=== PATIENT | female | born 1990 | race Caucasian/White ===

== ENCOUNTER 2019-10-20 07:11 | Day surgery (SDC) | payer OTHER ==
[2019-10-20] MEDS ORDERED: LIDOCAINE 0.5% INJ-PF (5 MG/ML) 50 ML SDV ONE (07:35)
[2019-10-20] MEDS ORDERED: PROPOFOL INJ 200 MG/20 ML VIAL IV ONE (07:35)
--- NOTE | 2019-10-20 08:09 | Operative Report ---
Operative Report DATE OF SURGERY: 10/20/19 Operative Report: The risks benefits and alternatives of the procedure explained to the patient in detail and informed consent is obtained.A GIF Olympus video scope was inserted into the patient's mouth and hypopharynx ,the esophagus is identified intubated and insufflated, the scope was then advanced through the esophagus stomach and duodenum, retroflexion maneuver is done, the esophagus stomach and first and second portions of the duodenum examined PREOPERATIVE DIAGNOSIS: Gastroesophageal reflux disease POSTOPERATIVE DIAGNOSIS: Gastritis status post biopsy. Esophageal rings and furrows suggestive of eosinophilic esophagitis. Hiatal hernia OPERATION: EGD with biopsy SURGEON: KASSANDRA ALEMAN ANESTHESIA: LMAC TISSUE REMOVED OR ALTERED: As noted above COMPLICATIONS: None. ESTIMATED BLOOD LOSS: None. INTRAOPERATIVE FINDINGS: As noted above. PROCEDURE: Patient tolerated the procedure well. No immediate postprocedure complications are noted. Patient is discharged in good condition. Discharge date 10/20/2019. Discharge diet: Regular. Discharge activity: Regular. 2 to 3-week follow-up to discuss findings. Patient is instructed call the office or proceed to the emergency room should there be any further palpitations. Wait on the pathology.
[2019-10-20 08:48] VITALS: BP 125/70
== END 2019-10-20 08:50 | disposition home or self-care (01) ==
LOC: END 07:11
PROVIDERS: ATTEND Internal Medicine Gastroenterology
DX: K29.50 Unspecified chronic gastritis without bleeding (principal); K22.2 Esophageal obstruction; K44.9 Diaphragmatic hernia without obstruction or gangrene; K20.0 Eosinophilic esophagitis; K21.9 Gastro-esophageal reflux disease without esophagitis; E66.9 Obesity, unspecified
CPT/HCPCS: 43239; 88305 ×2; J3490; J2704; 88342

== ENCOUNTER → 2019-10-28 | Outpatient (CLI) | payer OTHER ==
--- NOTE | 2019-10-28 11:00 | RADIOLOGY REPORT (SQ) ---
EXAM DESCRIPTION: U/S ABDOMEN LIMITED W/O DOP IMAGES COMPLETED DATE/TIME: 10/28/2019 9:05 am REASON FOR STUDY: NAUSEA AND VOMITING R11.2 NAUSEA WITH VOMITING, UNSPECIFIED COMPARISON: None. TECHNIQUE: Dynamic and static grayscale images acquired of the abdomen and recorded on PACS. Additio nal selected color Doppler and spectral images recorded. LIMITATIONS: None. FINDINGS: PANCREAS: No masses. Visualized pancreatic duct normal caliber. LIVER: 22.8 cm. Multiple solid masses the largest approximately 10 cm. LIVER VASCULATURE: Normal directional flow of the main portal vein and hepatic veins. GALLBLADDER: No stones. Normal wall thickness. No pericholecystic fluid. ULTRASOUND-DETECTED BARBOSA'S SIGN: Negative. INTRAHEPATIC DUCTS AND COMMON DUCT: CBD and intrahepatic ducts normal caliber. No filling defects. INFERIOR VENA CAVA: Normal flow. AORTA: No aneurysm. RIGHT KIDNEY: Normal size. Normal echogenicity. No solid or suspicious masses. No hydronephrosis. No calcifications. PERITONEAL AND RIGHT PLEURAL SPACE: No ascites or effusions. OTHER: No other significant findings. IMPRESSION: Multiple liver masses worrisome for metastatic disease. No ascites. COMMENT: The findings were sent to the Radiology Results Communication [facility] at 10:53 on 10/28/2019 to be communicated to a licensed caregiver. TECHNICAL DOCUMENTATION: JOB ID: [id number] 2010 [employer]- All Rights Reserved Reading location - IP/workstation name: [email or web address]
--- NOTE | 2019-10-28 12:41 | RADIOLOGY REPORT (SQ) ---
EXAM DESCRIPTION: NM HIDA SCAN WITH CCK IMAGES COMPLETED DATE/TIME: 10/28/2019 12:18 pm REASON FOR STUDY: NAUSEA AND VOMITING R11.2 NAUSEA WITH VOMITING, UNSPECIFIED COMPARISON: None. RADIONUCLIDE AND DOSE: DOSAGE RADIONUCLIDE: 5.5 millicuries Tc99m Mebrofenin. DOSAGE CCK: 2.5 micrograms. DOSAGE MORPHINE: Not required. The route of agent administration: Intravenous TECHNIQUE: Serial imaging right upper quadrant up to 60 minutes following injection of radionuclide. CCK injected after gallbladder visualized. LIMITATIONS: None. FINDINGS: LIVER: Normal visualization without areas of photopenia. INTRA AND EXTRAHEPATIC BILE DUCTS: Normal accumulation of activity. GALLBLADDER: Normal visualization. Calculated Ejection Fraction of 9%. Below the normal value of 35% or greater. PHYSICAL RESPONSE: Patients presenting complaint was reproduced. OTHER: No other significant finding. IMPRESSION: LOW GALLBLADDER EJECTION FRACTION. EVIDENCE FOR BILIARY DYSKINESIS. NO CYSTIC OR COMMO N DUCT OBSTRUCTION. TECHNICAL DOCUMENTATION: JOB ID: [id number] 2010 [employer]- All Rights Reserved Reading location - IP/workstation name: [email or web address]
== END ==
LOC: RAD 08:19
PROVIDERS: ATTEND Internal Medicine Gastroenterology
DX: R11.2 Nausea with vomiting, unspecified (principal)
CPT/HCPCS: 76705; 78227; J2805; A9537; Q9969

== ENCOUNTER → 2019-11-05 | Outpatient (CLI) | payer OTHER ==
--- NOTE | 2019-11-05 16:04 | RADIOLOGY REPORT (SQ) ---
EXAM DESCRIPTION: CT ABD/PELVIS WITH IV ONLY IMAGES COMPLETED DATE/TIME: 11/05/2019 3:08 pm REASON FOR STUDY: R11.2 NAUSEA WITH VOMITING, UNSPECIFIED R11.2 NAUSEA WITH VOMITING, UNSPECIFIED COMPARISON: Abdominal ultrasound examination dated 10/28/2019. TECHNIQUE: CT scan of the abdomen and pelvis performed using helical scanning technique with dynamic intravenous contrast injection. No oral contrast. Images reviewed with lung, soft tissue, and bone windows. Reconstructed coronal and sagittal MPR images reviewed. Delayed images for evaluation of the urinary system also acquired. All images stored on PACS. All CT scanners at this facility use dose modulation, iterative reconstruction, and/or weight based d osing when appropriate to reduce radiation dose to as low as reasonably achievable (ALARA). [facility]: Dose Right [facility]: CareDose [facility]: Dose Right [facility]: Teradose 4D [facility]: [employer] CONTRAST TYPE AND DOSE: contrast/concentration: Isovue 350.00 mmol/ml; Total Contrast Delivered: 96. 0 ml; Total Saline Delivered: 64.0 ml RENAL FUNCTION: None required. The patient is less than 50 years old. RADIATION DOSE: CT Rad equipment meets quality standard of care and radiation dose reduction techniq ues were employed. CTDIvol: 22.6 - 31.4 mGy. DLP: 2950 mGy-cm.. LIMITATIONS: None. FINDINGS: LOWER CHEST: No significant findings. No nodules or infiltrates. LIVER: A very large complex heterogenous enhancing mass in the right hepatic lobe measures 13.1 cm x 11.4 cm (coronal dimensions, image 70, series 601). There are multiple low attenuated septations th roughout the mass. A partially visualized low attenuated rim surrounds the anterior margin of the ma ss. Several enhancing lesions in the dome of the liver, axial image 10, series 2, in the left hepatic lob e, axial image 16, series 2. Some of the largest measure 2.8 cm in diameter. There is an enhancing 6.8 cm x 5.8 cm mass in the left hepatic lobe, axial image 19, series 2. Considerations for these fi ndings include primary versus secondary neoplasms. Hepatomegaly, the liver measures 24.0 cm in length. No dilated ducts. The hepatic and portal veins are patent. A well-circumscribed low attenuated lesion in the left hepatic lobe with a Hounsfield un it of 28.3. SPLEEN: Normal size. No focal lesions. PANCREAS: No masses. No significant calcifications. No adjacent inflammation or peripancreatic fluid collections. Pancreatic duct not dilated. GALLBLADDER: No identified stones by CT criteria. No inflammatory changes to suggest cholecystitis. ADRENAL GLANDS: No significant masses or asymmetry. RIGHT KIDNEY AND URETER: Punctate nonobstructing right renal calculus. No solid masses LEFT KIDNEY AND URETER: No solid masses. No significant calcifications. No hydronephrosis or hydr oureter. AORTA AND VESSELS: No aneurysm. No dissection. Renal arteries, SMA, celiac without stenosis. RETROPERITONEUM: No retroperitoneal adenopathy, hemorrhage or masses. BOWEL AND PERITONEAL CAVITY: No masses or inflammatory changes. No free fluid or peritoneal masses. APPENDIX: Normal. PELVIS: No mass. No free fluid. Normal bladder. ABDOMINAL WALL: No masses. No hernias. BONES: No significant or acute findings. OTHER: No other significant finding. IMPRESSION: 1. Hepatomegaly. There are multiple various sized liver masses as detailed above. The se findings correlate to the ultrasound examination dated 10/28/2019. Considerations for these finding s include metastatic disease, possible primary tumor with metastatic disease. Clinical correlation, correlation with lab values, and additional imaging including PET/CT and/or dedicated MRI liver marino col with and without contrast.. TECHNICAL DOCUMENTATION: JOB ID: [id number] Quality ID # 436: Final reports with documentation of one or more dose reduction techniques (e.g., Au tomated exposure control, adjustment of the mA and/or kV according to patient size, use of iterative reconstruction technique) 2010 [employer]- All Rights Reserved Reading location - IP/workstation name: [email or web address]
== END ==
LOC: RAD 14:36
PROVIDERS: ATTEND Internal Medicine Gastroenterology
DX: R11.2 Nausea with vomiting, unspecified (principal); R16.0 Hepatomegaly, not elsewhere classified
CPT/HCPCS: 74177

== ENCOUNTER 2019-11-15 10:55 | Day surgery (SDC) | payer OTHER ==
[2019-11-15 12:22] LABS: INTERNATIONAL RATION (INR) 1.11; PROTHROMBIN TIME 14.5 SEC (11.4-15.4)
[2019-11-15 12:23] LABS: HEMATOCRIT 39.3 % (36.0-47.0); HEMOGLOBIN 13.3 g/dL (12.0-15.5); MEAN CORPUSCULAR HGB CONC 33.9 g/dL (32.0-36.0); MEAN CORPUSCULAR VOLUME 89 fl (80-97); PARTIAL THROMBOPLASTIN TIME 29.5 SEC (23.5-35.8); PLATELET COUNT 449 10^3/uL (150-450); RED BLOOD COUNT 4.43 10^6/uL (3.72-5.28); RED CELL DISTRIBUTION WIDTH 14.6 % (11.5-14.0); WHITE BLOOD COUNT 8.5 10^3/uL (4.0-10.5)
[2019-11-15 12:43] LABS: BLOOD UREA NITROGEN 9 mg/dL (7-20)
[2019-11-15] MEDS ORDERED: FENTANYL CITRATE INJ/PF 100 MCG/2 ML AMPUL ONE (13:11)
[2019-11-15] MEDS ORDERED: MIDAZOLAM 2 MG/2 ML INJ ONE (13:11)
--- NOTE | 2019-11-15 14:14 | RADIOLOGY REPORT (SQ) ---
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 The patient was brought to the CT suite and was placed supin e with the right flank slightly elevated on the CT gurney. The patient was prepped and draped in the usual sterile fashion. Axial images were obtained for targeting of thelarge mass in the right lobe. An appropriate access site was selected. IV conscious sedation was administered and physician directi on by the registered nurse using 1.0 milligrams of Versed and 50 micrograms of fentanyl. Physiologic monitoring was provided before, during, and after sedation. The total sedation time was 30 minutes. Documentation face to face time, the performing proceduralist, spent monitoring the patient: [address] of the liver was performed to localize an approach for the targeted liver biopsy. A percutaneous site was marked. Time out was performed. After skin prep and local lidocaine for skin and deep tissue anesthesia, a coaxial biopsy needle sys tem was used to obtain several cores of tissue from the large mass in the right lobe of the liver. T hese were submitted to the lab in formalin. Gel-Foam was utilized embolize the tract. No immediate postprocedure complications. Total of 2.[address] fluoro was used. 17 CT Fluoroscopic images were obtained and saved to PACS. All CT scanners at this facility use dose modulation, iterative reconstruction, and/or weight based d osing when appropriate to reduce radiation dose to as low as reasonably achievable (ALARA). [facility]: Dose Right [facility]: CareDose [facility]: Dose Right [facility]: Teradose 4D [facility]: [employer] RADIATION DOSE: CT Rad equipment meets quality standard of care and radiation dose reduction techniq ues were employed. CTDIvol: 4.0 - 26.9 mGy. DLP: 775 mGy-cm. mGy. LIMITATIONS: None. FINDINGS: CT guided liver biopsy as detailed above. IMPRESSION: CT GUIDED TARGETED LIVER BIOPSY PERFORMED ABOVE. PATHOLOGY PENDING. NO IMMEDIATE C OMPLICATIONS. COMMENT: Patient medication list reviewed:Yes- Quality ID# [id number]:Eligible professional attests to docu menting in the medical record they obtained, updated, or reviewed the patient's current medications.. Quality ID 145: Final reports for procedures using fluoroscopy that document radiation exposure quan unique, or exposure time and number of fluorographic images (if radiation exposure indices are not avail able) TECHNICAL DOCUMENTATION: JOB ID: [id number] Quality ID # [id number]: Final reports with documentation of one or more dose reduction techniques (e.g., A utomated exposure control, adjustment of the mA and/or kV according to patient size, use of iterative reconstruction technique) 2010 [employer]- All Rights Reserved Reading location - IP/workstation name: [email or web address]
--- NOTE | 2019-11-15 14:15 | RADIOLOGY REPORT (SQ) ---
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 IMPRESSION: Please see combined report for performance of procedure and radiologic supervision and i nterpretation. Reading location - IP/workstation name: [email or web address]
[2019-11-15 16:28] VITALS: BP 134/85
== END 2019-11-15 16:00 | disposition home or self-care (01) ==
LOC: RAD 10:55
PROVIDERS: ATTEND Internal Medicine
DX: K76.9 Liver disease, unspecified (principal); D49.0 Neoplasm of unspecified behavior of digestive system
CPT/HCPCS: 36415; 84520; 82565; 85027; 85610; 85730; 88342 ×2; 88341 ×2; 88305 ×2; 88313 ×2; 77012; 47000; J2250; J3010

== ENCOUNTER → 2020-01-26 | Outpatient (CLI) | payer OTHER ==
--- NOTE | 2020-01-26 14:11 | RADIOLOGY REPORT (SQ) ---
EXAM DESCRIPTION: U/S ABDOMEN LIMITED W/O DOP IMAGES COMPLETED DATE/TIME: 01/26/2020 12:30 pm REASON FOR STUDY: R11.2 NAUSEA WITH VOMITING, UNSPECIFIED R11.2 NAUSEA WITH VOMITING, UNSPECIFIED COMPARISON: CT of the abdomen and pelvis without contrast from 11/15/2019. TECHNIQUE: Dynamic and static grayscale images acquired of the abdomen and recorded on PACS. Additio nal selected color Doppler and spectral images recorded. LIMITATIONS: None. FINDINGS: PANCREAS: The visualized portions of the pancreas appear normal. LIVER: The echotexture of the liver is heterogeneous. There is re- demonstration of several hypoecho ic and hyperechoic lesions in the liver the largest of which measures 7.5 x 7.2 x 6.9 cm. LIVER VASCULATURE: Normal hepatopetal directional flow in the portal vein. GALLBLADDER: The gallbladder wall measures 2 mm in thickness. There is no cholelithiasis, sludge or pericholecystic fluid. ULTRASOUND-DETECTED BARBOSA'S SIGN: Negative. INTRAHEPATIC DUCTS AND COMMON DUCT: The common bile duct measures 7.9 mm in diameter. There is no di latation of the intrahepatic ducts. INFERIOR VENA CAVA: Not assessed. AORTA: No aneurysm. RIGHT KIDNEY: The right kidney measures 11.9 cm in length. The echogenic focus in the upper pole of the kidney represents a caliceal calculus. PERITONEAL AND RIGHT PLEURAL SPACE: No ascites or effusions. OTHER: No other findings. IMPRESSION: 1. Multiple hepatic lesions. 2. Caliceal calculus in the upper pole of the right kidney. There is no hydronephrosis. 3. Normal appearance of the gallbladder. TECHNICAL DOCUMENTATION: JOB ID: [id number] [employer]- All Rights Reserved Reading location - IP/workstation name: [email or web address]
== END ==
LOC: RAD 11:04
PROVIDERS: ATTEND Internal Medicine Gastroenterology
DX: N20.0 Calculus of kidney (principal); K76.9 Liver disease, unspecified; R11.2 Nausea with vomiting, unspecified
CPT/HCPCS: 76705